=== PATIENT | male | born 1980 | race African-American/Black ===

== ENCOUNTER 2016-10-13 19:43 | Emergency (ER) | payer OTHER ==
[~2016-10-13] VITALS: Ht 175.3 cm; Wt 99.8 kg
[2016-10-13 20:21] LABS: BASOPHILS 0.8 % (0.0-2.0); EOSINOPHILS 1.7 % (0.0-3.0); HEMATOCRIT 42.5 % (42.0-52.0); HEMOGLOBIN 14.2 gm/dL (14.0-18.0); LYMPHOCYTES 28.3 % (24.0-44.0); MCH 29.3 pg (26.0-34.0); MCHC 33.5 g/dL (28.0-37.0); MCV 87.7 fL (80.0-100.0); MONOCYTES 10.6 % (1.0-8.0); PLATELET COUNT 412 thou/uL (150-400); POLYS 58.6 % (36.0-66.0); RBC 4.85 mil/uL (4.50-6.00); RDW 13.8 % (10.5-14.5); WBC 8.5 thou/uL (4.0-11.0)
[2016-10-13 20:25] LABS: MANUAL DIFF NO
[2016-10-13 20:33] LABS: CREATININE 1.1 mg/dL (0.7-1.3); POTASSIUM 3.9 mmol/L (3.5-5.1)
[2016-10-13 20:38] LABS: TOTAL BILIRUBIN 0.5 mg/dL (<0.1-1.0); TOTAL PROTEIN 7.6 g/dL (6.4-8.2)
[2016-10-13] MEDS ORDERED: MIRALAX255 GM PO (20:48)
[2016-10-13] MEDS ORDERED: ANUSOL-HC25 MG RECTAL (20:48)
[2016-10-13 21:09] VITALS: BP 119/71
[2016-10-13] MEDS ORDERED: ZYRTEC10 M5 PO (21:09)
== END 2016-10-13 21:10 | disposition home or self-care (01) ==
LOC: ER 19:43
PROVIDERS: Physician Assistant
DX: K64.4 Residual hemorrhoidal skin tags (principal); K62.5 Hemorrhage of anus and rectum; F17.220 Nicotine dependence, chewing tobacco, uncomplicated

== ENCOUNTER → 2020-04-20 | Outpatient (CLI) | payer OTHER ==
[~2020-04-20] MED LIST: ANUSOL-HC25 MG RECTAL; MIRALAX255 GM PO; ZYRTEC10 M5 PO
== END ==
LOC: LAB 07:51
PROVIDERS: ATTEND Surgery
DX: Z01.812 Encounter for preprocedural laboratory examination (principal); Z20.828 Contact with and (suspected) exposure to other viral communicable diseases